=== PATIENT | female | born 1990 | race African-American/Black ===

== ENCOUNTER 2023-03-27 11:42 | Emergency (ER) | payer OTHER ==
[2023-03-27 12:02] VITALS: BP 118/72; PULSE 77; RESP 18; TEMP 98.2; BMI 28.2
[2023-03-27 12:56] LABS: EPI CELLS >36 /uL (0-25.1); HYALINE CASTS 0 /uL (0-3.1); URINE APPEARANCE CLEAR; URINE BACTERIA 391 /uL (0-1359); URINE BILIRUBIN NEGATIVE (NEGATIVE); URINE COLOR YELLOW; URINE GLUCOSE (UA) NEGATIVE (NEGATIVE); URINE KETONE 3+ (NEGATIVE); URINE LEUK ESTERASE TRACE (NEGATIVE); URINE NITRITE NEGATIVE (NEGATIVE); URINE PROTEIN TRACE (NEGATIVE); URINE RBC 7 /uL (0-23.9); URINE WBC 51 /uL (0-25.8)
[2023-03-27 13:41] LABS: EOS % 0.2 % (0-4.5); HEMATOCRIT 38.8 % (32.4-45.2); HEMOGLOBIN 12.4 GM/dL (10.7-15.3); LYMPH % 35.8 % (8-40); MCH 24.8 pg (25.7-33.7); MEAN CELL VOLUME 77.4 fl (80-96); MEAN PLT VOLUME 7.9 fl (7.5-11.1); MONO % 6.1 % (3.8-10.2); NEUT % 56.9 % (42.8-82.8); PLATELET COUNT 324 10^3/uL (134-434); RDW 17.2 % (11.6-15.6); WHITE BLOOD COUNT 4.7 K/mm3 (4.0-10.0)
[2023-03-27 14:07] LABS: CHLORIDE 104 mmol/L (98-107); SODIUM 122 mmol/L (136-145)
[2023-03-27 14:09] LABS: CALCIUM 9.4 mg/dL (8.5-10.1); GLUCOSE,RANDOM 78 mg/dL (74-106)
[2023-03-27 14:10] LABS: ALBUMIN 4.2 g/dl (3.4-5.0); BLOOD UREA NITROGEN 7.5 mg/dL (7-18); CO2 25 mmol/L (21-32)
[2023-03-27 14:15] LABS: TOT PROT 9.1 g/dl (6.4-8.2)
[2023-03-27 14:16] LABS: ALK PHOS 60 U/L (45-117)
[2023-03-27 14:20] LABS: ANION GAP -7 mmol/L (4-13); CREATININE 0.9 mg/dL (0.55-1.3); POTASSIUM > 10.0 mmol/L (3.5-5.1); SGOT/AST 129 U/L (15-37); SGPT/ALT 28 U/L (13-61)
[2023-03-27 15:16] LABS: POTASSIUM 4.3 mmol/L (3.5-5.1)
[2023-03-27 15:18] LABS: BLOOD UREA NITROGEN 7.6 mg/dL (7-18); CALCIUM 9.3 mg/dL (8.5-10.1)
[2023-03-27 15:19] LABS: ALBUMIN 4.1 g/dl (3.4-5.0)
[2023-03-27 15:21] LABS: CREATININE 0.7 mg/dL (0.55-1.3)
[2023-03-27 15:24] LABS: TOT PROT 7.8 g/dl (6.4-8.2)
[2023-03-27 15:25] LABS: BILIRUBIN,TOTAL 1.5 mg/dL (0.2-1)
== END 2023-03-27 17:24 | disposition home or self-care (01) ==
LOC: JER 11:42
DX: O26.891 Other specified pregnancy related conditions, first trimester (principal); R10.32 Left lower quadrant pain; O46.91 Antepartum hemorrhage, unspecified, first trimester; R35.0 Frequency of micturition; Z3A.01 Less than 8 weeks gestation of pregnancy
CPT/HCPCS: 36415; 76817-TC; 80053; 81003; 84702; 85025; 86850; 86900; 86901; 87086; 87491; 87591; 99284-25